=== PATIENT | female | born 1985 | race Caucasian/White ===

== ENCOUNTER 2019-03-24 12:33 | Emergency (ER) | payer OTHER ==
[~2019-03-24] VITALS: Ht 167.6 cm; Wt 72.6 kg
[~2019-03-24 12:33] MED LIST: BENZONATATE200 MG PO; BIRTH CONTROL; FLEXERIL PO; HYDROCODONE-AP1 EAC6 PO; MEDROLDOSEPACK PO; ROBAXIN 750 MG750 M1 PO
[2019-03-24] MEDS ORDERED: FLEXERIL PO (13:50)
[2019-03-24] MEDS ORDERED: LIDODERM1 EACH TRANSDERM (13:50)
[2019-03-24 14:26] VITALS: BP 122/70
== END 2019-03-24 14:26 | disposition home or self-care (01) ==
LOC: M.ERS 12:33
DX: S20.212A Contusion of left front wall of thorax, initial encounter (principal); F17.210 Nicotine dependence, cigarettes, uncomplicated; Z88.5 Allergy status to narcotic agent; Z88.6 Allergy status to analgesic agent; X50.0XXA Overexertion from strenuous movement or load, initial encounter; Y93.89 Activity, other specified; Y92.89 Other specified places as the place of occurrence of the external cause; Y99.8 Other external cause status